=== PATIENT | male | born 1945 | race Caucasian/White ===

== ENCOUNTER 2017-03-16 13:57 | Emergency (ER) | payer OTHER ==
[~2017-03-16] VITALS: Ht 175.3 cm; Wt 108.9 kg
--- NOTE | 2017-03-16 15:24 | ED GI/GU/ABDOMINAL COMPLAINT ---
History of Present Illness General Chief Complaint: General Adult Stated Complaint: CANNOT SWOLLOW X3 DAYS Vital Signs & Intake/Output Vital Signs & Intake/Output Vital Signs Date Time Temp Pulse Resp B/P B/P Pulse O2 O2 Flow FiO2 Mean Ox Delivery Rate 03/16 1726 65 18 160/72 95 Room Air 03/16 1407 99.1 84 15 135/72 97 Room Air Room Air Triage Note: PT TO ED FOR DIFFICULTY KEEPING FOOD/SALIVA DOWN FOR THREE DAYS. PT DENIES FOOD BOLUS. HASN'T BEEN ABLE TO EAT OR DRINK WITHOUT THE FOOD OR DRINK REGURGITATING. PT TOLERATING OWN SECRETIONS IN TRIAGE, DENIES SOB. NO ACUTE DISTRESS NOTED. (ARIEL LOVELACE,ANABELLE) General Source: patient Exam Limitations: no limitations Allergies Coded Allergies: No Known Allergies (03/16/17) Reconcile Medications Acetaminophen 500 MG TABLET 2 TAB PO PRN PAIN (Reported) Diclofenac Sodium 75 MG TABLET.DR 1 TAB PO BID PRN ARTHRITIS (Reported) Triage Nurses Notes Reviewed? yes Onset: Gradual Duration: week(s): Timing: multiple episodes today HPI: Patient is a 71 YO M with PMH significant for nonerosive gastritis, isolated gastric varix (endoscopy jun 2015) came to the ER after unable to tolerate fluids/solids for the past 3days with regurgitation of fluids. At baseline he had (LEXUS HUERTA,ROSS) Past History Travel History Traveled to [place] past 21 day No Medical History Musculoskeletal: ARTHRITIS Psychosocial History What is your primary language Stateless Tobacco Use: Quit >30 days ago ETOH Use: denies use Illicit Drug Use: denies illicit drug use (ARIEL LOVELACE,ANABELLE) Progress Plan of Care: Orders Procedure Date/time Status Add-on Test (ER Only) 03/16 1744 Active HEPATIC FUNCTION PANEL 03/16 1708 Complete CBC WITHOUT DIFFERENTIAL 03/16 1651 Complete BASIC METABOLIC PANEL 03/16 1651 Complete Current Medications Sig/Jolanta Start time Last Medication Dose Stop Time Status Admin Sodium Chloride 1,000 ML Q10H 03/16 1830 UNVr (Normal Saline 0.9%) 03/17 0429 Laboratory Tests 03/16/17 1708: Anion Gap 13, Estimated GFR 43 L, BUN/Creatinine Ratio 21.3, Glucose 89, Calcium 9.5, Total Bilirubin 2.1 H, Direct Bilirubin 1.0 H, AST 30, ALT 44, Alkaline Phosphatase 84, Total Protein 7.4, Albumin 4.3, CBC w Diff NO MAN DIFF REQ, RBC 4.20 L, MCV 89.2, MCH 29.8, RDW 14.0, MPV 7.6, Gran % 75.7 H, Lymphocytes % 15.2 L, Monocytes % 5.9, Eosinophils % 2.8, Basophils % 0.4, Absolute Granulocytes 7.2 H, Absolute Lymphocytes 1.4, Absolute Monocytes 0.6, Absolute Eosinophils 0.3, Absolute Basophils 0, PUBS MCHC 33.4 Departure Departure Condition: Stable Referrals: FADI GONCALVES MD (PCP/Family) Departure Forms: Customer Survey General Discharge Information (ARIEL LOVELACE,ANABELLE)
[2017-03-16] MEDS ORDERED: DICLOFENAC SODI75 M2 PO (16:41)
[2017-03-16] MEDS ORDERED: ACETAMINOPHEN500 M4 PO (16:42)
[2017-03-16 17:29] LABS: ABSOLUTE BASOPHIL COUNT 0 /CUMM (0.0-0.2); ABSOLUTE EOSINOPHIL COUNT 0.3 /CUMM (0.0-0.7); ABSOLUTE GRANULOCYTE CT 7.2 /CUMM (1.4-6.5); ABSOLUTE LYMPH COUNT 1.4 /CUMM (1.2-3.4); ABSOLUTE MONOCYTE COUNT 0.6 /CUMM (0.10-0.60); BASOPHIL % 0.4 % (0.0-2.0); EOSINOPHIL % 2.8 % (0-5); GRANULOCYTE % 75.7 % (42.2-75.2); HEMATOCRIT 37.5 % (42-52); MEAN CORPUSCULAR HGB 29.8 PG (27.0-31.0); MEAN CORPUSCULAR HGB CONC 33.4 G/DL (33.0-37.0); MEAN CORPUSCULAR VOLUME 89.2 FL (80.0-94.0); MEAN PLATELET VOLUME 7.6 FL (7.4-10.4); PLATELET COUNT 178 /CUMM (130-400); WHITE BLOOD CELL COUNT 9.5 /CUMM (4.8-10.8)
--- NOTE | 2017-03-16 19:15 | ED GI/GU/ABDOMINAL COMPLAINT ---
History of Present Illness General Chief Complaint: General Adult Stated Complaint: CANNOT SWOLLOW X3 DAYS Source: patient Exam Limitations: no limitations Vital Signs & Intake/Output Vital Signs & Intake/Output Vital Signs Date Time Temp Pulse Resp B/P B/P Pulse O2 O2 Flow FiO2 Mean Ox Delivery Rate 03/16 2004 98.0 67 18 136/60 98 Room Air 03/16 1838 Room Air 03/16 1726 65 18 160/72 95 Room Air 03/16 1407 99.1 84 15 135/72 97 Room Air Room Air Allergies Coded Allergies: No Known Allergies (03/16/17) Reconcile Medications Acetaminophen 500 MG TABLET 2 TAB PO PRN PAIN (Reported) Diclofenac Sodium 75 MG TABLET. 1 TAB PO BID PRN ARTHRITIS (Reported) Triage Note: PT TO ED FOR DIFFICULTY KEEPING FOOD/SALIVA DOWN FOR THREE DAYS. PT DENIES FOOD BOLUS. HASN'T BEEN ABLE TO EAT OR DRINK WITHOUT THE FOOD OR DRINK REGURGITATING. PT TOLERATING OWN SECRETIONS IN TRIAGE, DENIES SOB. NO ACUTE DISTRESS NOTED. Triage Nurses Notes Reviewed? yes Onset: Gradual HPI: Patient is a 71 YO M with PMH significant for nonerosive gastritis, isolated gastric varix (??splenic vein thrombosis) came to the ER with dysphagia to both solids/liquids for the past 3 days. It started after he ate a sandwitch, he was able to swallow water which immediately regurgitates back without any chocking/ cough. He has been regurgitating lettuce from the sandwich till this day. At baseline he had intermittent dysphagia to solids (not to liquids) followed by intake of liquids resulting in throwing up everything. No aggrevating/ alleviating foods. No associated fever/chills. He had a 70 pound weight loss for the past 1 yr but claims it is intentional. Denies any cough, sour taste in the throat, acid reflux. Occasional diarrhea. He underwent endoscopy and colonoscopy by in jun 2015. Endoscopy results are significant for nonerosive gastritis, isolated gastric varix which requires further evaluation with CT scan with IV contrast to rule out splenic vein thrombosis. If dysphagia persists manometry was advised. Recommeneded to take PPI. However patient never took PPI & never followed up with GI physician. (ARIEL LOVELACE,ANABELLE) Past History Travel History Traveled to [place] past 21 day No Medical History Any Pertinent Medical History? see below for history Gastrointestinal: gastritis, intermittent dysphagia Hepatic: NONE Musculoskeletal: ARTHRITIS Surgical History Surgical History: none Psychosocial History What is your primary language Irish Tobacco Use: Quit >30 days ago ETOH Use: denies use Illicit Drug Use: denies illicit drug use Family History Hx Contributory? Yes (ARIEL LOVELACE,ANABELLE) Review of Systems Review of Systems Constitutional: Reports: no symptoms, see HPI. EENTM: Reports: no symptoms. Respiratory: Reports: no symptoms. Cardiovascular: Reports: no symptoms. GI: Denies: abdominal pain, bloating, constipation. (ARIEL LOVELACE,ANABELLE) Physical Exam Physical Exam General Appearance: well developed/nourished, alert, awake, comfortable Head: atraumatic Eyes: Bilateral: normal appearance, PERRL, EOMI. Ears, Nose, Throat, Mouth: hearing grossly normal Neck: normal inspection, supple Respiratory: normal breath sounds, chest non-tender Cardiovascular: regular rate/rhythm Peripheral Pulses: 2+ radial (R), 2+ radial (L) Gastrointestinal: normal bowel sounds, soft, non-tender, spleenomegaly Skin: seborrheic keratosis Diagram Body Front & Back 1) Food getting stuck resulting in regurgitation of fluids/solids Core Measures ACS in differential dx? 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 processing esophagus , motility disorders Plan of Care: Orders Procedure Date/time Status Add-on Test (ER Only) 03/16 1744 Active HEPATIC FUNCTION PANEL 03/16 1708 Complete CBC WITHOUT DIFFERENTIAL 03/16 1651 Complete BASIC METABOLIC PANEL 03/16 1651 Complete Current Medications Sig/Jolanta Start time Last Medication Dose Stop Time Status Admin Sodium Chloride 1,000 ML Q10H 03/16 1830 AC 03/16 (Normal Saline 0.9%) 03/17 0429 1830 Laboratory Tests 03/16/17 1708: Anion Gap 13, Estimated GFR 43 L, BUN/Creatinine Ratio 21.3, Glucose 89, Calcium 9.5, Total Bilirubin 2.1 H, Direct Bilirubin 1.0 H, AST 30, ALT 44, Alkaline Phosphatase 84, Total Protein 7.4, Albumin 4.3, CBC w Diff NO MAN DIFF REQ, RBC 4.20 L, MCV 89.2, MCH 29.8, RDW 14.0, MPV 7.6, Gran % 75.7 H, Lymphocytes % 15.2 L, Monocytes % 5.9, Eosinophils % 2.8, Basophils % 0.4, Absolute Granulocytes 7.2 H, Absolute Lymphocytes 1.4, Absolute Monocytes 0.6, Absolute Eosinophils 0.3, Absolute Basophils 0, PUBS MCHC 33.4 IV GLUCAGON, NITROGLYCERIN ORDERED. D/W DR HIGUERA - WILL REQUIRE ENDOSCOPY. (CHETNA STREET MD) Initial ED EKG: none Hand-Off Endorsed To: DIMITRI PALOMINO MD Comments: I think food was impacted in the upper esophagus, requires disimpaction. GI was informed and going for a procedure. May need further evaluation with CT scan of the abdomen. 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 Pending upper endoscopy for esophageal food impaction. 03/16/2017 9:12:[address] Higuera the patient had a sizable esophageal food impaction associated with a stricture. The patient should be placed on a soft diet and a proton pump inhibitor. (DIMITRI PALOMINO MD) Hand-Off Endorsed To: DIMITRI PALOMINO MD Endorsed Time: 1899 Pending: consult (GI FOR ENDOSCOPY) (CHETNA STREET MD) Departure Departure Disposition: STILL A PATIENT Condition: Stable Clinical Impression Primary Impression: Food impaction of esophagus Secondary Impressions: Esophageal obstruction due to food impaction Referrals: FADI GONCALVES MD (PCP/Family) Departure Forms: Customer Survey General Discharge Information (ANABELLE GEORGE MD) Departure Additional Instructions: Protonix as prescribed. Follow-up with Dr. Higuera as discussed with him. Notify your primary care doctor of this emergency department visit and treatment plan. Return if any concerns or sudden worsening. Thank you for choosing the [facility] Emergency Department for your care. It was a pleasure to serve you today. Dimitri Palomino M.D. [facility] (ALKA LOVELACE,DIMITRI Thrasher) Resident Co-Sign Statement Statement: ED Attending supervision documentation- [X] I saw and evaluated the patient. I have also reviewed all the pertinent lab results and diagnostic results. I agree with the findings and the plan of care as documented in the Resident's documentation. [X] I have reviewed the ED Record and agree with the Resident's documentation. [] Additions or exceptions (if any) to the Resident's note and plan are summarized below: [] (JAD LOVELACE,CHETNA)
--- NOTE | 2017-03-16 21:23 | Proc Note Endoscopy ---
Endoscopy Procedure Medical History: unchanged (see ER note) Mental Status: alert/oriented Heart/Lung Eval Prior to Sedation: within normal limits Candidate for Sedation? Yes Procedure Date: 03/16/17 Procedure Type: EGD with foreign body removal Maintenance Machinist: Sami Higuera MD ASA Classification: III Indications: Dysphagia, food impaction. Instrument: diagnostic gastroscope Meds Received: MAC Patient's Tolerance: good Complications: none Extent Reached: second part of duodenum Procedure: After getting written informed consent the patient was placed in the left lateral decubitus position with pulse oximetry, cardiac monitoring, and supplemental oxygen given. A bite block was inserted and IV sedation was given until the desired effect was achieved. A high definition upper Olympus endoscope was then inserted into the mouth and advanced to the upper esophagus at which point a significant food bolus was encountered and there was also solid food appreciated all the way to the GE junction at approximately 42 cm from the incisors. Some of the food bolus was removed using a Vo net and when it was determined that multiple passes of the endoscope would be necessary to completely clear the esophagus the scope was removed from the patient and the patient was prophylactically intubated. After he was intubated the food bolus was removed in a piecemeal fashion and some of the pieces were then able to be pushed into the stomach, but the majority of the food was removed with the Vo net. After all of the food was removed from the esophagus the scope was then able to be advanced to the second portion of the duodenum with little difficulty , but some resistance was encountered secondary to benign esophageal stricture. Retroflexed views and photodocumentation was obtained. Findings: Esophagus: The esophagus was tortuous and there was a benign stricture at 42 cm from the incisor that the scope was able to traverse with some resistance. As stated in the procedure section of this report there was a large burden of food starting in the upper esophagus and extending to the hiatal narrowing at approximate 42 cm from the incisors which was removed using a Vo net with some of the pieces being pushed into the stomach with the scope. After the food bolus was removed there was moderate erythema and some friability of the GE junction as well as throughout the rest of the esophagus, but there were no obvious masslike lesions appreciated. Stomach: The gastric mucosa was grossly normal in appearance. There were no ulcers, erosions, or masses appreciated. Distention and peristalsis of the stomach appeared normal. Retroflexed views did not reveal a significant hiatal hernia, but did reveal a prominent gastric varix without stigmata of recent hemorrhage. Duodenum: The duodenal bulb, sweep, and folds were grossly normal in appearance. Impression: 1. Food bolus secondary to a benign esophageal stricture status post removal with multiple passes of a Vo net and the residual pieces were pushed into the stomach. 2. Nonbleeding gastric varix. Recommendations: 1. He should start omeprazole 40 mg once a day for him to take regularly for now. 2. He should follow-up in the office in 1 week to arrange for a repeat upper endoscopy to dilate the stricture. 3. He should follow an antireflux regimen. 4. He was instructed to stay on a soft solid diet until he repeat endoscopy with dilation is performed. 5. He should also have a CAT scan with IV contrast to evaluate for splenic vein thrombosis to further evaluate the etiology of his solid gastric varix. CC: SACHA LOVELACE,FADI
[2017-03-16 23:19] VITALS: BP 162/72
[2017-03-16] MEDS ORDERED: PROTONIX20 M1 PO (23:26)
== END 2017-03-16 23:40 ==
LOC: ERH 13:57
PROVIDERS: Internal Medicine
DX: T18.128A Food in esophagus causing other injury, initial encounter (principal); K22.2 Esophageal obstruction; X58.XXXA Exposure to other specified factors, initial encounter; K21.9 Gastro-esophageal reflux disease without esophagitis
CPT/HCPCS: 96361; 96374; J1610; J3490

== ENCOUNTER 2018-03-07 17:30 | Emergency (ER) | payer OTHER ==
[~2018-03-07] VITALS: Ht 177.8 cm; Wt 113.4 kg
[~2018-03-07 17:30] MED LIST: ACETAMINOPHEN500 M4 PO; DICLOFENAC SODI75 M2 PO; PROTONIX20 M1 PO
--- NOTE | 2018-03-07 18:02 | ED GI/GU/ABDOMINAL COMPLAINT ---
History of Present Illness General Chief Complaint: General Adult Stated Complaint: ?BLOCKAGE IN THROAT Source: patient, family, old records Exam Limitations: no limitations Vital Signs & Intake/Output Vital Signs & Intake/Output Vital Signs Date Time Temp Pulse Resp B/P B/P Pulse O2 O2 Flow FiO2 Mean Ox Delivery Rate 03/07 2205 58 18 157/74 96 Nasal 2.0L Cannula 03/07 2000 98.7 51 16 136/63 95 Room Air 03/07 1734 98.1 61 16 160/74 96 Room Air Allergies Coded Allergies: No Known Allergies (03/16/17) Reconcile Medications Acetaminophen 500 MG TABLET 2 TAB PO PRN PAIN (Reported) Diclofenac Sodium 75 MG TABLET.DR 1 TAB PO BID PRN ARTHRITIS (Reported) Pantoprazole Sodium (Protonix) 20 MG TABLET.DR 1 TAB PO DAILY stomach acid Triage Note: 72M TO ED FOR FOOD BOLUS - POSSIBLY BREAD OR PORK CHOP. HX OF DYSPHAGIA AND HAS NEEDED ENDOSCOPE REMOVAL IN THE PAST. SPEAKING WITHOUT DIFFICULTY AND MANAGING SECRETIONS WELL. DENIES DIFFICULTY BREATHING. Triage Nurses Notes Reviewed? yes Onset: 36 hours Duration: day(s):, constant, continues in ED Timing: recent history Quality/Severity: fullness, severe Location: substernal Radiation: no radiation Activities at Onset: eating Prior Abdominal Problems: similar symptoms Past Sexual History: Unobtainable at this time Modifying Factors: Worsens With: eating. Associated Symptoms: loss of appetite HPI: 36 hours prior to admission after eating pork chops and bread the patient is unable to eat or drink similar to previous esophageal food impaction. (Ac Veliz MD) Past History Travel History Traveled to [place] past 21 day No Medical History Any Pertinent Medical History? see below for history Gastrointestinal: gastritis intermittent dysphagia, cirrhosis, gastric varices Hepatic: NONE Musculoskeletal: ARTHRITIS Surgical History Surgical History: none Psychosocial History What is your primary language Vietnamese Tobacco Use: Quit >30 days ago Family History Hx Contributory? No (Ac Veliz MD) Review of Systems Review of Systems Constitutional: Reports: no symptoms. EENTM: Reports: no symptoms. Respiratory: Reports: no symptoms. Cardiovascular: Reports: no symptoms. GI: Reports: see HPI, abdominal pain, nausea. Genitourinary: Reports: no symptoms. Musculoskeletal: Reports: no symptoms. Skin: Reports: no symptoms. Neurological/Psychological: Reports: no symptoms. Hematologic/Endocrine: Reports: no symptoms. Immunologic/Allergic: Reports: no symptoms. All Other Systems: Reviewed and Negative (Ac Veliz MD) Physical Exam Physical Exam General Appearance: well developed/nourished, alert, awake, anxious, moderate distress, obese Head: atraumatic, normal appearance Eyes: Bilateral: normal appearance, PERRL, EOMI, normal inspection. Ears, Nose, Throat, Mouth: hearing grossly normal, Dry mucous membranes Neck: normal inspection, supple, full range of motion, normal alignment Respiratory: normal breath sounds, chest non-tender, no respiratory distress, quiet respiration, lungs clear Cardiovascular: regular rate/rhythm, normal peripheral pulses, norml femoral pulses equa Peripheral Pulses: 4+ carotid (R), 4+ carotid (L) Gastrointestinal: normal bowel sounds, soft, non-tender, no organomegaly, unable to tolerate water Male Genitals: normal genitalia Back: normal inspection, normal range of motion Extremities: normal range of motion, no ligament instability Neurologic/Psych: no motor/sensory deficits, awake, alert, oriented x 3, normal gait, normal mood/affect, beach expert II-XII nml as tested Skin: intact, normal color, warm/dry Core Measures ACS in differential dx? No Sepsis Present: No Sepsis Focused Exam Completed? No (Ac Veliz MD) Progress Differential Diagnosis: esophageal food impaction Plan of Care: Orders Procedure Date/time Status PARTIAL THROMBOPLASTIN TIME 03/07 175 Complete PROTHROMBIN TIME 03/07 175 Complete ETHANOL 03/07 175 Complete COMPREHENSIVE METABOLIC PANEL 03/07 175 Complete CBC WITHOUT DIFFERENTIAL 03/07 1756 Complete Laboratory Tests 03/07/18 1806: Anion Gap 12, Estimated GFR 40 L, BUN/Creatinine Ratio 15.3, Glucose 100 H, Calcium 9.0, Total Bilirubin 1.6 H, AST 34, ALT 33, Alkaline Phosphatase 112, Total Protein 7.0, Albumin 3.8, Globulin 3.2, Albumin/Globulin Ratio 1.2, PT 14.0 H, INR 1.28 H, APTT 30, CBC w Diff NO MAN DIFF REQ, RBC 4.29 L, MCV 85.6 , MCH 28.9, MCHC 33.8, RDW 14.2, MPV 6.9 L, Gran % 72.0, Lymphocytes % 16.2 L, Monocytes % 7.7, Eosinophils % 3.5, Basophils % 0.6, Absolute Granulocytes 5.2, Absolute Lymphocytes 1.2, Absolute Monocytes 0.6, Absolute Eosinophils 0.3, Absolute Basophils 0, Serum Alcohol < 10.0 Diagnostic Imaging: Viewed by Me: Radiology Read. Discussed w/RAD: Radiology Read. CXR Impression: 1. Increased density in the region of the upper to mid esophagus which could be related to food impaction. No radiodense foreign body demonstrated. 2. Diffuse reticular markings which may indicate an underlying chronic lung disease. This could be further assessed with nonemergent dedicated high-resolution chest CT depending on the clinical picture. Initial ED EKG: none Hand-Off Endorsed To: Malachi Whitman MD Endorsed Time: 1899 Pending: consult (GI / endoscopy) (Ac Veliz MD) Departure Departure Disposition: STILL A PATIENT Condition: Stable Clinical Impression Primary Impression: Esophageal obstruction due to food impaction Secondary Impressions: Azotemia Referrals: Nehemias Maldonado MD (PCP/Family) Departure Forms: Customer Survey General Discharge Information (Ac Veliz MD) Departure Comments 03/07/18, 23:00.... pt feeling better... tolerated clears... discussed with patient plan - clears tonight, full liquids tomorrow... pt to follow up with dr. argueta (gastroenterology) to consider re-scope. (J Carlos LOVELACE,Malachi Townsend)
[2018-03-07 18:17] LABS: ABSOLUTE BASOPHIL COUNT 0 /CUMM (0.0-0.2); ABSOLUTE EOSINOPHIL COUNT 0.3 /CUMM (0.0-0.7); ABSOLUTE GRANULOCYTE CT 5.2 /CUMM (1.4-6.5); ABSOLUTE LYMPH COUNT 1.2 /CUMM (1.2-3.4); ABSOLUTE MONOCYTE COUNT 0.6 /CUMM (0.10-0.60); BASOPHIL % 0.6 % (0.0-2.0); EOSINOPHIL % 3.5 % (0-5); HEMATOCRIT 36.7 % (42-52); MEAN CORPUSCULAR HGB 28.9 PG (27.0-31.0); MEAN CORPUSCULAR HGB CONC 33.8 G/DL (33.0-37.0); MEAN CORPUSCULAR VOLUME 85.6 FL (80.0-94.0); MEAN PLATELET VOLUME 6.9 FL (7.4-10.4); PLATELET COUNT 189 /CUMM (130-400); RBC DISTRIBUTION WIDTH 14.2 % (11.5-14.5); RED BLOOD CELL CT 4.29 /CUMM (4.70-6.10); WHITE BLOOD CELL COUNT 7.2 /CUMM (4.8-10.8)
[2018-03-07 18:25] LABS: PTT 30 SEC (25-37)
--- NOTE | 2018-03-07 18:40 | RADIOLOGY REPORT ---
EXAMINATION: XR CHEST CLINICAL INFORMATION: Foreign body. Esophageal impaction COMPARISON: None TECHNIQUE: 2 views of the chest were obtained. FINDINGS: Heart size is within normal range. The mediastinal contours appear normal. Lungs are clear without consolidation or effusion. There are scattered reticular markings throughout both lung ramires. On the lateral view there is relative increased density just below the level of the aortic arch. This projects partially over the thoracic spine. Incidental note is additionally made of diffuse idiopathic skeletal hyperostosis of the thoracic spine. IMPRESSION: 1. Increased density in the region of the upper to mid esophagus which could be related to food impaction. No radiodense foreign body demonstrated. 2. Diffuse reticular markings which may indicate an underlying chronic lung disease. This could be further assessed with nonemergent dedicated high-resolution chest CT depending on the clinical picture.
--- NOTE | 2018-03-07 21:41 | Cons- Gastroenterology ---
General Information and HPI Consulting Request Date of Consult: 03/07/18 Requested By: Reji Veliz M.D. Reason for Consult: Dysphagia Esophageal food impaction Source of Information: patient History of Present Illness: 72-year-old male status post food impaction last year, and empiric esophageal dilatation in August (although no stricture or ring was seen). The patient frequently has the accumulation of phlegm during eating which requires cessation of ingestion. He does not actually feel food sticking. He has no frequent heartburn or nausea. 2 nights ago, while eating, he had the abrupt onset of inability to swallow liquids without regurgitation. This has persisted since that time although he has attempted to eat periodically. He denies chest pain, abdominal pain, shortness of breath, fever. The patient has been diagnosed with cirrhosis (although he is unaware). He has not had a GI bleed, nor ascites or edema. He has no known history of hepatitis or jaundice. Allergies/Medications Allergies: Coded Allergies: No Known Allergies (03/16/17) Home Med List: Acetaminophen 500 MG TABLET 2 TAB PO PRN PAIN (Reported) Diclofenac Sodium 75 MG TABLET.DR 1 TAB PO BID PRN ARTHRITIS (Reported) Pantoprazole Sodium (Protonix) 20 MG TABLET.DR 1 TAB PO DAILY stomach acid Current Medications: Current Medications Sig/Jolanta Start time Last Medication Dose Route Stop Time Status Admin Glucagon 0 .STK-MED ONE 03/07 1823 DC .ROUTE Glucagon 1 MG ONCE ONE 03/07 1800 DC 03/07 N/A 1 UNIT IV 03/07 1801 1823 Sodium Chloride 1,000 ML BOLUS ONE 03/07 1915 DC IV 03/07 2014 Sodium Chloride 1,000 ML BOLUS ONE 03/07 1830 DC 06/ IV / 1929 1819 Past History Travel History Traveled to [place] past 21 day No Medical History Gastrointestinal: gastritis intermittent dysphagia cirrhosis gastric varices Hepatic: cirrhosis Musculoskeletal: ARTHRITIS Surgical History Surgical History: 1 Review of Systems Review of Systems Constitutional: Denies: chills, fever. EENTM: Denies: icterus, epistaxis. Cardiovascular: Denies: chest pain, peripheral edema. Respiratory: Denies: cough, short of breath. GI: Reports: see HPI. Genitourinary: Denies: dysuria, hematuria. Musculoskeletal: Denies: muscle stiffness, neck pain. Skin: Denies: jaundice, lesions. Neurological/Psychological: Denies: cognitive dysfunction, tremors. Hematologic/Endocrine: Denies: bruising, bleeding. Exam & Diagnostic Data Vital Signs and I&O Vital Signs Date Time Temp Pulse Resp B/P B/P Pulse O2 O2 Flow FiO2 Mean Ox Delivery Rate 03/07 2000 98.7 51 16 136/63 95 Room Air 03/07 1734 98.1 61 16 160/74 96 Room Air Physical Exam: Well-developed, well-nourished, in no apparent distress. Alert and oriented with normal cognition. No tremor or asterixis. Skin normal without rash, jaundice, lesion, stigmata of chronic liver disease. No scleral icterus. Oropharynx normal. Edentulous (dentures). Neck supple without masses or thyromegaly. Heart regular rhythm. Lungs clear bilaterally. No Erich crunch. Abdomen obese, soft, normal bowel sounds; no tenderness, mass or organomegaly. Extremities without edema, and without palpable distal pulses. Results Pertinent Lab Results: Laboratory Tests 03/07 1806 Chemistry Sodium (137 - 145 mmol/L) 144 Potassium (3.5 - 5.1 mmol/L) 4.1 Chloride (98 - 107 mmol/L) 102 Carbon Dioxide (22 - 30 mmol/L) 30 Anion Gap (5 - 16) 12 BUN (9 - 20 mg/dL) 26 H Creatinine (0.7 - 1.2 mg/dL) 1.7 H Estimated GFR (>60 ml/min) 40 L BUN/Creatinine Ratio (7 - 25 %) 15.3 Glucose (65 - 99 mg/dL) 100 H Calcium (8.4 - 10.2 mg/dL) 9.0 Total Bilirubin (0.2 - 1.3 mg/dL) 1.6 H AST (17 - 59 U/L) 34 ALT (21 - 72 U/L) 33 Alkaline Phosphatase (< 127 U/L) 112 Total Protein (6.3 - 8.2 g/dL) 7.0 Albumin (3.5 - 5.0 g/dL) 3.8 Globulin (1.9 - 4.2 gm/dL) 3.2 Albumin/Globulin Ratio (1.1 - 2.2 %) 1.2 Coagulation PT (9.4 - 12.5 SEC) 14.0 H INR (0.90 - 1.17) 1.28 H APTT (25 - 37 SEC) 30 Hematology CBC w Diff NO MAN DIFF REQ WBC (4.8 - 10.8 /CUMM) 7.2 RBC (4.70 - 6.10 /CUMM) 4.29 L Hgb (14.0 - 18.0 G/DL) 12.4 L Hct (42 - 52 %) 36.7 L MCV (80.0 - 94.0 FL) 85.6 MCH (27.0 - 31.0 PG) 28.9 MCHC (33.0 - 37.0 G/DL) 33.8 RDW (11.5 - 14.5 %) 14.2 Plt Count (130 - 400 /CUMM) 189 MPV (7.4 - 10.4 FL) 6.9 L Gran % (42.2 - 75.2 %) 72.0 Lymphocytes % (20.5 - 51.1 %) 16.2 L Monocytes % (1.7 - 9.3 %) 7.7 Eosinophils % (0 - 5 %) 3.5 Basophils % (0.0 - 2.0 %) 0.6 Absolute Granulocytes (1.4 - 6.5 /CUMM) 5.2 Absolute Lymphocytes (1.2 - 3.4 /CUMM) 1.2 Absolute Monocytes (0.10 - 0.60 /CUMM) 0.6 Absolute Eosinophils (0.0 - 0.7 /CUMM) 0.3 Absolute Basophils (0.0 - 0.2 /CUMM) 0 Toxicology Serum Alcohol (<10 MG/DL) < 10.0 Assessment/Plan Assessment/Recommendations: Dysphagia, with clinical food bolus impaction. He can handle secretions, but cannot drink liquids without regurgitation. His underlying symptoms are atypical for classic dysphagia. He had no ring or stricture found on endoscopy in August. One must consider the possibility of a dysmotility. 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 No evident ascites, edema, coagulopathy or encephalopathy. Overdue for hepatocellular carcinoma surveillance. Recommendations * Emergent EGD be performed. Further recommendations to follow (see endoscopy report) Copies To: Sami Higuera MD Acknowledgment - Thank you for your consult request.
--- NOTE | 2018-03-07 21:59 | Proc Note Endoscopy ---
Endoscopy Procedure Medical History: unchanged (see consultation) Mental Status: alert/oriented Heart/Lung Eval Prior to Sedation: within normal limits Candidate for Sedation? Yes Procedure Date: 03/07/18 Procedure Type: EGD with removal of food impaction [employer]: Orlando Terry M.D. ASA Classification: III Indications: Dysphagia Esophageal food impaction by history Instrument: diagnostic gastroscope Meds Received: THOMAS/TIVA Patient's Tolerance: good Complications: none Extent Reached: second part of duodenum Procedure: The patient signed informed consent, was intubated, and was medicated. Pulse oximetry, blood pressure and cardiac monitoring were performed continuously throughout the procedure. The Olympus high-definition gastroscope was inserted into the mouth and advanced to the duodenum. Retroflexion was performed within the stomach to examine the cardia. Careful examination was performed. Findings: There was food in the mouth. There was food from the esophageal inlet all the way to the GE junction (42 cm). The esophagus was insufflated with air, and the endoscope carefully manipulated to the area of the GE junction, and into the stomach. There were no mucosal abnormalities (erosions, ulcerations, nodularity , mass lesions) noted. There was no blood. There were no evident varices. The proximal and mid esophagus was dilated. The distal mucosa was quite edematous and the lumen narrowed, with some resistance to passage of the endoscope. There was what appeared to be a ring at the GE junction. There was no hiatal hernia. The stomach had normal distention. Retroflexion demonstrated a normal cardia. There was a cluster of large varices fundus on the greater curvature. There was no evident gastropathy. The stomach was otherwise normal. The pyloric channel was normal. The duodenal bulb was a nonbleeding large vascular ectasia. There was a diverticulum in the descending duodenum. The mucosa and folds of the duodenal sweep were normal. Using a Vo net, multiple large pieces of food were removed through the mouth. Using gentle manipulation, multiple pieces were then pushed into the stomach. This became difficult given the degree of edema and narrowing, however. There was slight bleeding at the GE junction. At the termination of the procedure, there was residual foodstuff within the distal part of the esophagus, coating the lumen, but not obstructing. Impression: * Esophageal food impaction, with food from esophageal inlet to the GE junction. * Dilated esophagus, with distal narrowing and mucosal edema * GE junction ring * Gastric varices * Duodenal vascular ectasia Recommendations: * As discussed with ED physician, Dr. Whitman, after appropriate recovery time would attempt a clear liquid trial. If tolerated, the patient may be discharged from the emergency room on a clear liquid diet tomorrow, advancing to not more than full liquids the day after. He should then follow up in our office with Dr. Kalen siddiqui, and there may be consideration for repeat EGD to assess for clearance of all solid food. * If the patient cannot handle clear liquids tonight, would consider admission or observation status. * Would suggest evaluation for dysmotility * Routine follow-up of cirrhosis with Dr. Higuera. CC: Erica LOVELACE,Arnulfo Higuera MD,Sami
[2018-03-07 22:05] VITALS: BP 157/74
== END 2018-03-07 23:28 ==
LOC: ERH 17:30
PROVIDERS: Emergency Medicine
DX: K22.2 Esophageal obstruction (principal); R79.89 Other specified abnormal findings of blood chemistry; I86.4 Gastric varices; K31.819 Angiodysplasia of stomach and duodenum without bleeding; K74.60 Unspecified cirrhosis of liver; Z87.19 Personal history of other diseases of the digestive system
CPT/HCPCS: 71046; 96374; G0480; J1610; J2250; J3010